=== PATIENT | male | born 2000 | race Two or more races ===

== ENCOUNTER 2022-06-25 22:03 | Emergency (ER) | payer OTHER ==
[~2022-06-25] VITALS: Ht 167.6 cm; Wt 113.6 kg
[2022-06-25 22:14] VITALS: BP 127/80
[2022-06-25] MEDS ORDERED: AMOX-277 PO (22:56)
[2022-06-25] MEDS ORDERED: PRED20TA2 PO (22:56)
== END 2022-06-25 23:13 | disposition home or self-care (01) ==
LOC: ER 22:07
DX: J06.9 Acute upper respiratory infection, unspecified (principal); Z20.822 Contact with and (suspected) exposure to COVID-19
CPT/HCPCS: 36415; 87426; 87804

== ENCOUNTER 2023-03-31 22:37 | Emergency (ER) | payer OTHER ==
[~2023-03-31] VITALS: Ht 167.6 cm; Wt 114.4 kg
[~2023-03-31 22:37] MED LIST: AMOX875T4 PO; PRED20TA2 PO
[2023-03-31 23:09] VITALS: BP 123/75; PULSE 81; RESP 17; TEMP 98.1
[2023-04-01] MEDS ORDERED: CIPR500T4 PO (00:34)
[2023-04-01 00:46] VITALS: O2SAT 98
[2023-04-01 04:32] LABS: COVID19 ANTIGEN SOFIA FIA NEGATIVE (NEGATIVE)
[2023-04-01 04:47] LABS: Rapid Influenza A Negative (Negative); Rapid Influenza B Negative (Negative)
== END 2023-04-01 06:26 | disposition home or self-care (01) ==
LOC: ER 22:37
DX: K52.9 Noninfective gastroenteritis and colitis, unspecified (principal); Z20.822 Contact with and (suspected) exposure to COVID-19
CPT/HCPCS: 36415; 87426; 87804